=== PATIENT | female | born 1950 | race Caucasian/White ===

== ENCOUNTER 2017-08-13 06:03 | Inpatient (IN) | payer OTHER ==
[2017-07-28 14:19] VITALS: BMI 27.3
[~2017-08-13 06:03] MED LIST: CELECOXIB 200 MG CAPSULE PO ONE; oxyCODONE HCL 10 MG SUSTAINED ACTING TABLET PO ONE
[2017-08-13] MEDS ORDERED: oxyCODONE HCL 10 MG SUSTAINED ACTING TABLET ONE (06:43)
[2017-08-13] MEDS ORDERED: CELECOXIB 200 MG CAPSULE ONE (06:43)
[2017-08-13] MEDS ORDERED: VANCOMYCIN 1,250 MG in DEXTROSE 5%-WATER - 250 ML IVPB ONE (07:00)
[2017-08-13] MEDS ORDERED: CEFAZOLIN 2 GM/D5W 2 GM/50 ML ML IVPB ONE (07:00)
[2017-08-13] MEDS ORDERED: DEXAMETHASONE SOD PHOSPHATE/PF 10 MG/ML SDV ONE (07:45)
[2017-08-13] MEDS ORDERED: MIDAZOLAM HCL 2 MG/2 ML SINGLE DOSE VIAL ONE ×3 (07:45→09:32)
[2017-08-13] MEDS ORDERED: SODIUM CHLORIDE 0.9% P/F 10 ML VIAL IJ ONE (07:46)
[2017-08-13] MEDS ORDERED: BUPIVACAINE LIPOSOME/PF (EXPAREL) 266 MG/20 ML VIAL ONE (07:46)
[2017-08-13] MEDS ORDERED: BUPIVACAINE HCL/PF (5 MG/ML) 30 ML VIAL IJ ONE (07:46)
--- NOTE | 2017-08-13 07:47 | HP ---
History & Physical Update - History History: No Change - Physical Physical: No Change - Assessment Assessment: No Change - Plan Plan: No Change (no health history changes since pre-op clearance on 08/02/17)
[2017-08-13] MEDS ORDERED: BENZOIN/ALOE VERA/STORAX/TOLU 58 ML BOTTLE ONE (07:56)
[2017-08-13] MEDS ORDERED: PROPOFOL 20 ML ONE (08:19)
[2017-08-13] MEDS ORDERED: SUCCINYLCHOLINE CHLORIDE 200 MG/10 ML VIAL ONE (08:19)
[2017-08-13] MEDS ORDERED: ceFAZolin SODIUM 1 GM VIAL ONE (08:29)
[2017-08-13] MEDS ORDERED: VANCOMYCIN 1,000 MG VIAL (RESTRICTED TO ID ONLY) ONE (08:30)
[2017-08-13] MEDS ORDERED: TRANEXAMIC ACID 1000 MG/10 ML VIAL IVPUSH ONE (09:00)
[2017-08-13] MEDS ORDERED: VERAPAMIL HCL 5 MG/2 ML VIAL IVPUSH ONE (09:09)
--- NOTE | 2017-08-13 10:31 | OP ---
Operative Note - Note: Operative Date: 08/13/17 Pre-Operative Diagnosis: Right knee DJD Operation: Right total knee replacement Implants: Farhan Triathlon (cemented). Femur - 5. Tibia - 6. Poly - 11mm, TS. Patella - 27mm Post-Operative Diagnosis: Same as Pre-op Surgeon: Howie Dykes Sorority Mother: Angelito Dykes Anesthesiologist/DATABASE DEVELOPMENT PROJECT MANAGER: Leidy Varghese Anesthesia: Spinal Specimens Removed: Bone, soft tissue Estimated Blood Loss (mls): 0 Drains & Tubes with Location: 1 x deep hemovac Fluid Volume Replaced (mls): 1,000 (Crystalloid) Operative Report Dictated: Yes
--- NOTE | 2017-08-13 10:33 | PN ---
Progress Note (short form) - Note Progress Note: 66F s/p RIGHT total knee replacement POD #0. -Pain control. -DVT PPx: -Chemical: ASA 81mg PO BID x 6 weeks. -Mechanical: ZEKE's, SCD's. -Incentive spirometry. -PT/OT/Rehab, OOB. -WBAT RLE. -f/u drain output. -f/u AM labs. -Sandy-op antibiotics. -f/u post-op TOV. -Care per medical hospitalist team. -Discharge planning. -Will follow. Howie Dykes MD (Orthopaedic Surgery).
[2017-08-13] MEDS ORDERED: MAGNESIUM HYDROX 2400MG/30ML ORAL SUSPENSION 30 ML CUP PO PRN (10:35)
[2017-08-13] MEDS ORDERED: MAG HYDROX/AL HYDROX/SIMETH 30 ML UNIT-DOSE CUP PO PRN (10:35)
[2017-08-13] MEDS ORDERED: LACTATED RINGERS SOLUTION 1,000 ML IV SCH (10:45)
--- NOTE | 2017-08-13 11:14 | SURG ---
Surgery Clinical Administrative Coordinator Note Clinical Administrative Coordinator: Madelyn Morales PA-C Date of Service: 08/13/17 (]) Diagnosis: Right knee osteoarthritis Procedure: right total knee arthroplasty I was present for the entirety of the operative procedure. For further detail, please refer to operative report. Visit type - Case Type Case Type: Scheduled - Emergency Emergency Visit: No - New patient This patient is new to me today: Yes Date on this admission: 08/13/17
--- NOTE | 2017-08-13 11:31 | OP ---
DATE OF OPERATION: 08/13/2017 SURGEON: Howie Dykes MD ASSISTANTS: Angelito Dykes MD, and KUMAR Ann PREOPERATIVE DIAGNOSIS: Fixed flexed tricompartmental osteoarthritis, right knee. POSTOPERATIVE DIAGNOSIS: Fixed flexed tricompartmental osteoarthritis, right knee. OPERATION PERFORMED: Right cemented posterior stabilized total knee arthroplasty ([place]nard). ANESTHESIA: Conscious sedation with spinal anesthesia and peripheral nerve block. OPERATION IN DETAIL: The patient was correctly identified and brought in the operating room. The right lower extremity was prepped and free draped in the routine manner with Betadine scrub solution, wiped with alcohol, and DuraPrep was applied. A time-out was called. Imaging was available for intraoperative evaluation. On the table, evaluation revealed a fixed valgus deformity of approximately 15 to 20 degrees, fixed flexed deformity of about 10 degrees. In the supine position, the older regional incision was entered. This was the original incision for the meniscal transplant and cartilage transplant performed in [facility] many years ago. This was extended proximally and distally. The quadriceps tendon was incised longitudinally, and a medial parapatellar incision utilized around the medial aspect of the patella to the tibial tubercle. Patella was capsized laterally. Severe tricompartmental osteoarthritis of the knee noted. The patella was cut free-handed. After freeing soft tissues appropriately, a size 27-mm jig applied and lug holes inserted. The tibia was subluxed forwards. The tibial cut was made extramedullary with neutral alignment achieved. This, to receive a size 6 universal baseplate tibia, and the tibial surface prepared at that point. The femoral insertional starter hole was inserted into the bone bed just above the insertion of the posterior cruciate ligament. Onto this, the femoral cuts were made. This was an approximation of the joint line by +2 mm. The knee was cut in external rotation of 3 degrees and valgus of 4 degrees. The femur for a Triathlon Knee measured size 5, and the flexion gaps and extension gaps were even at 11 mm. Once all bony cuts were made, the bone bed was prepared thoroughly with pulse lavage. Cementing was in one stage, patella, tibia, and femur, to receive the exact mentioned implants, which had been trialed previously revealing excellent realignment of the knee back into its anatomical position and mechanical axis being reconstituted. Once the cementing was completed, all extraneous cement was removed, and a size 11 TS polyethylene liner to the tibia inserted. This gave full extension on the table, easy flexion to at least 120 to 130 degrees, and patellar tracking was uncomplicated. The wounds were thoroughly lavaged. The wounds were closed with quadriceps tendon parapatellar tissues and fascia 1 Vicryl, subcutaneous 1 and 2-0 Vicryl, skin 3-0 Monocryl with Steri- Strips. Drainage 1/8-inch Hemovac x1. Overall, operation went extremely well. Tourniquet time was well below 70 minutes. MD RADHA Comer/[id number] MTDD
[2017-08-13] MEDS ORDERED: oxyCODONE HCL 5 MG TABLET PO PRN (12:06)
[2017-08-13] MEDS: ACETAMINOPHEN 325 MG TABLET (FP) PO SCH ×2 (12:14→18:08)
[2017-08-13] MEDS: ONDANSETRON 4 MG/2 ML VIAL IVPUSH PRN (12:45)
--- NOTE | 2017-08-13 14:03 | CONSULT ---
Consultation: REQUESTING PROVIDER: Dr Dykes CONSULT REQUEST: We have been asked to medically evaluate this patient for medical management HISTORY OF PRESENT ILLNESS: Patient is a 66 y/o female with a past medical history of htn, hypothyroidism, and DJD. Patient was admitted to the medical surgical unit after an elective right total knee replacement, 08/13/17, Dr Dykes. REVIEW OF SYSTEMS: CONSTITUTIONAL: Absent: fever, chills, diaphoresis, generalized weakness, malaise, loss of appetite, weight change HEENT: Absent: rhinorrhea, nasal congestion, throat pain, throat swelling, difficulty swallowing, mouth swelling, ear pain, eye pain, visual changes CARDIOVASCULAR: Absent: chest pain, syncope, palpitations, irregular heart rate, lightheadedness , peripheral edema RESPIRATORY: Absent: cough, shortness of breath, dyspnea with exertion, orthopnea, wheezing, stridor, hemoptysis GASTROINTESTINAL: Absent: abdominal pain, abdominal distension, nausea, vomiting, diarrhea, constipation, melena, hematochezia GENITOURINARY: Absent: dysuria, frequency, urgency, hesitancy, hematuria, flank pain, genital pain MUSCULOSKELETAL: Absent: myalgia, arthralgia, joint swelling, back pain, neck pain SKIN: Absent: rash, itching, pallor HEMATOLOGIC/IMMUNOLOGIC: Absent: easy bleeding, easy bruising, lymphadenopathy, frequent infections ENDOCRINE: Absent: unexplained weight gain, unexplained weight loss, heat intolerance, cold intolerance NEUROLOGIC: Absent: headache, focal weakness or paresthesias, dizziness, unsteady gait, seizure, mental status changes, bladder or bowel incontinence PSYCHIATRIC: Absent: anxiety, depression, suicidal or homicidal ideation, hallucinations. PHYSICAL EXAMINATION Vital Signs - 24 hr 08/13/17 08/13/17 08/13/17 06:56 11:10 11:15 Temperature 97.9 F 96.1 F L Pulse Rate 45 L 49 L 44 L Respiratory 18 14 10 L Rate Blood Pressure 127/72 116/71 120/70 O2 Sat by Pulse 99 98 Oximetry (%) 08/13/17 08/13/17 08/13/17 11:20 11:25 11:40 Temperature Pulse Rate 44 L 51 L 43 L Respiratory 10 L 21 21 Rate Blood Pressure 113/68 107/74 101/69 O2 Sat by Pulse 98 100 100 Oximetry (%) 08/13/17 08/13/17 08/13/17 11:55 12:10 12:25 Temperature Pulse Rate 48 L 44 L 42 L Respiratory 18 12 12 Rate Blood Pressure 113/73 107/73 105/67 O2 Sat by Pulse 100 100 100 Oximetry (%) 08/13/17 08/13/17 12:40 13:00 Temperature 96.3 F L 95.8 F L Pulse Rate 45 L 46 L Respiratory 12 12 Rate Blood Pressure 108/71 107/76 O2 Sat by Pulse 100 100 Oximetry (%) GENERAL: Awake, alert, and fully oriented, in no acute distress. HEAD: Normal with no signs of trauma. EYES: Pupils equal, round and reactive to light, extraocular movements intact, sclera anicteric, conjunctiva clear. No lid lag. EARS, NOSE, THROAT: Ears normal, nares patent, oropharynx clear without exudates. Moist mucous membranes. NECK: Normal range of motion, supple without lymphadenopathy, JVD, or masses. LUNGS: Breath sounds equal, clear to auscultation bilaterally. No wheezes, and no crackles. No accessory muscle use. HEART: Regular rate and rhythm, normal S1 and S2 without murmur, rub or gallop. ABDOMEN: Soft, nontender, not distended, normoactive bowel sounds, no guarding, no rebound, no masses. No hepatomegaly or splenomegaly. MUSCULOSKELETAL: Normal range of motion at all joints. No bony deformities or tenderness. No CVA tenderness. UPPER EXTREMITIES: 2+ pulses, warm, well-perfused. No cyanosis. No clubbing. Cap refill <2 seconds. No peripheral edema. LOWER EXTREMITIES: 2+ pulses, warm, well-perfused. No calf tenderness. No peripheral edema. RIGHT LOWER EXTREMITY: hemovac drain: serrous drainage, dressing CDI, less than 3 second capillary refill, +3 pedal pulse, patient is able to move the digits of the foot w/o any difficulty. NEUROLOGICAL: Cranial nerves II-XII intact. Normal speech. Normal gait. PSYCHIATRIC: Cooperative. Good eye contact. Appropriate mood and affect. SKIN: Warm, dry, normal turgor, no rashes or lesions noted. Active Medications Generic Name Dose Route Start Last Admin Trade Name Freq PRN Reason Stop Dose Admin Acetaminophen 650 mg 08/13/17 12:15 08/13/17 12:14 Tylenol - PO 08/16/17 12:14 650 mg Q6H ANAY Administration Al Hydroxide/Mg Hydroxide 30 ml 08/13/17 10:35 Mylanta Oral Suspension - PO Q4H PRN DYSPEPSIA Amlodipine Besylate 5 mg 08/14/17 10:00 Norvasc - PO DAILY [facility] Aspirin 81 mg 08/13/17 22:00 Asa - PO BID [facility] Fentanyl 25 mcg 08/13/17 12:06 Sublimaze Injection - IVPUSH [id number] PRN PAIN-PACU ORDER X 4 DOSES ONLY Hydrochlorothiazide 12.5 mg 08/14/17 10:00 Hctz - PO DAILY [facility] Cefazolin Sodium/Dextrose 2 gm in 50 mls @ 100 mls/hr 08/13/17 18:00 Ancef 2 Gm Premixed Ivpb - IVPB 08/14/17 02:29 Q8H-IV [facility] Lactated Ringer's 1,000 mls @ 100 mls/hr 08/13/17 10:45 Lactated Ringers Solution IV 08/14/17 06:00 ASDIR [facility] Levothyroxine Sodium 88 mcg 08/14/17 07:00 Synthroid - PO DAILY@0700 [facility] Magnesium Hydroxide 30 ml 08/13/17 10:35 Milk Of Magnesia - PO PRN PRN CONSTIPATION Ondansetron HCl 4 mg 08/13/17 10:35 08/13/17 12:45 Zofran Injection IVPUSH 4 mg Q6H PRN Administration NAUSEA Oxycodone HCl 5 mg 08/13/17 12:06 Roxicodone - PO Q3H PRN PAIN LEVEL 1-5 Oxycodone HCl 10 mg 08/13/17 12:06 Roxicodone - PO Q3H PRN PAIN LEVEL 6-10 Oxycodone HCl 10 mg 08/13/17 22:00 Oxycontin - PO 08/16/17 12:07 BID [facility] Pantoprazole Sodium 40 mg 08/14/17 10:00 Protonix - PO DAILY [facility] Senna/Docusate Sodium 2 tablet 08/13/17 22:00 Pericolace - PO BID [facility] ASSESSMENT/PLAN: 1) MS s/p right total knee replacement, POD #0 - prn pain medication - physical therapy as per the orthopedist - monitor hgb 2) cardiovascular hypertension - continue amlodipne and hctz 3)endo hypothyroidism - continue home dose levothyroxine Dispo: We will continue to follow the patient. Thank you for this consultative opportunity. Visit type - Emergency Visit Emergency Visit: No - New Patient This patient is new to me today: Yes Date on this admission: 08/13/17 - Critical Care Critical Care patient: No
[2017-08-13] MEDS ORDERED: SODIUM CHLORIDE 0.9% 500 ML INFUS.BAG IV ONE (15:29)
[2017-08-13] MEDS ORDERED: ePHEDrine SULFATE 50 MG/1 ML AMPULE IVPUSH ONE (16:00)
[2017-08-13] MEDS: oxyCODONE HCL 5 MG TABLET PO PRN ×3 (16:07→21:37)
[2017-08-13] MEDS: CEFAZOLIN 2 GM/D5W 2 GM/50 ML ML IVPB SCH (18:07)
[2017-08-13] MEDS: SENNOSIDES/DOCUSATE COMBO (SENNA PLUS) TABLET (UD) PO SCH (21:35)
[2017-08-13] MEDS: ASPIRIN 81 MG CHEWABLE TABLETS PO SCH (21:35)
[2017-08-13] MEDS ORDERED: oxyCODONE HCL 10 MG SUSTAINED ACTING TABLET PO SCH (22:00)
[2017-08-14] MEDS: ACETAMINOPHEN 325 MG TABLET (FP) PO SCH ×3 (00:48→18:50)
[2017-08-14] MEDS: oxyCODONE HCL 5 MG TABLET PO PRN ×3 (00:48→21:46)
[2017-08-14] MEDS: CEFAZOLIN 2 GM/D5W 2 GM/50 ML ML IVPB SCH (01:16)
[2017-08-14] MEDS: ONDANSETRON 4 MG/2 ML VIAL IVPUSH PRN (07:05)
[2017-08-14] MEDS: LEVOTHYROXINE NA 88 MCG TABLET (FP) PO SCH (07:06)
[2017-08-14 09:20] LABS: HEMATOCRIT 27.3 % (32.4-45.2); HEMOGLOBIN 9.3 GM/dl (10.7-15.3); MCH 31.1 pg (25.7-33.7); MEAN CELL VOLUME 91.6 fl (80-96); MEAN PLT VOLUME 8.9 fl (7.5-11.1); PLATELET COUNT 187 K/MM3 (134-434); RBC 2.98 M/mm3 (3.60-5.2); RDW 13.3 % (11.6-15.6); WHITE BLOOD COUNT 8.1 K/mm3 (4.0-10.8)
[2017-08-14 09:25] LABS: ANION GAP 5 (8-16); BLOOD UREA NITROGEN 17 mg/dl (7-18); CALCIUM 7.8 mg/dl (8.4-10.2); CHLORIDE 100 mmol/L (98-107); CO2 27 mmol/L (22-28); CREATININE 0.8 mg/dl (0.6-1.3); GLUCOSE,RANDOM 143 mg/dl (74-106); POTASSIUM 3.1 mmol/L (3.5-5.1); SODIUM 132 mmol/L (136-145)
[2017-08-14] MEDS ORDERED: KETOROLAC TROMETHAMINE 30 MG/1 ML VIAL IVPUSH ONE (09:31)
[2017-08-14] MEDS: ASPIRIN 81 MG CHEWABLE TABLETS PO SCH ×2 (10:00→21:46)
[2017-08-14] MEDS: HYDROCHLOROTHIAZIDE 12.5 MG CAPSULE (FP) PO SCH (10:00)
[2017-08-14] MEDS ORDERED: PROMETHAZINE HCL 25 MG/1 ML VIAL IVPB ONE (10:00)
[2017-08-14] MEDS ORDERED: POTASSIUM CHLORIDE TABS 20 MEQ TABLET.ER (FP) PO ONE (10:00)
[2017-08-14] MEDS: SENNOSIDES/DOCUSATE COMBO (SENNA PLUS) TABLET (UD) PO SCH ×2 (10:10→21:46)
[2017-08-14] MEDS: PANTOPRAZOLE 40 MG TABLET (FP) PO SCH (10:15)
[2017-08-14] MEDS: amLODIPine BESYLATE 5 MG TABLET (FP) PO SCH (10:24)
--- NOTE | 2017-08-14 10:35 | PN ---
Progress Note (short form) - Note Progress Note: Anesthesia postop note POD#1. S/P Right total knee replacement, under spinal and nerve block. Pat seen and examined. Pat c/o pain since last night, been unable to sleep.Also c/o tightness in her right thigh and below the knee. N/V last night and this morning. VSS. Sitting in chair, c/o pain and nausea. Will D/C oxycontin. Add toradol and Tylenol. Continue with Oxycodon. Will follow up.
--- NOTE | 2017-08-14 11:10 | PN ---
Physical Exam: SUBJECTIVE: Patient seen and examined, patient is sitting in her bedside recliner, reports ongoing nausea OBJECTIVE: Patient is a 66 y/o female with a past medical history of htn, hypothyroidism, and DJD. Patient was admitted to the medical surgical unit after an elective right total knee replacement, 08/13/17, Dr Dykes. Vital Signs Period Temp Pulse Resp BP Sys/Shepherd Pulse Ox Last 24 Hr 95.8 F-98.4 F 42-68 10-21 101-137/67-76 98-100 GENERAL: The patient is awake, alert, and fully oriented, in no acute distress. HEAD: Normal with no signs of trauma. EYES: PERRL, extraocular movements intact, sclera anicteric, conjunctiva clear. No ptosis. ENT: Ears normal, nares patent, oropharynx clear without exudates, moist mucous membranes. NECK: Trachea midline, full range of motion, supple. LUNGS: Breath sounds equal, clear to auscultation bilaterally, no wheezes, no crackles, no accessory muscle use. HEART: Regular rate and rhythm, S1, S2 without murmur, rub or gallop. ABDOMEN: Soft, nontender, nondistended, normoactive bowel sounds, no guarding, no rebound, no hepatosplenomegaly, no masses. EXTREMITIES: 2+ pulses, warm, well-perfused, no edema. RIGHT LOWER EXTREMITY: dressing CDI, less than 3 second capillary refill, + 3 pedal pulse, hemovac drain sangenous drainage NEUROLOGICAL: Cranial nerves II through XII grossly intact. Normal speech, gait not observed. PSYCH: Normal mood, normal affect. SKIN: Warm, dry, normal turgor, no rashes or lesions noted Laboratory Results - last 24 hr 08/14/17 08/14/17 08:30 08:30 WBC 8.1 RBC 2.98 L Hgb 9.3 L Hct 27.3 L MCV 91.6 MCH 31.1 MCHC 34.0 RDW 13.3 Plt Count 187 MPV 8.9 Sodium 132 L Potassium 3.1 L Chloride 100 Carbon Dioxide 27 Anion Gap 5 L BUN 17 Creatinine 0.8 Random Glucose 143 H Calcium 7.8 L Active Medications Generic Name Dose Route Start Last Admin Trade Name Freq PRN Reason Stop Dose Admin Acetaminophen 650 mg 08/13/17 12:15 05/10/18 07:06 Tylenol - PO 08/16/17 12:14 650 mg Q6H ANAY Administration Al Hydroxide/Mg Hydroxide 30 ml 08/13/17 10:35 Mylanta Oral Suspension - PO Q4H PRN DYSPEPSIA Amlodipine Besylate 5 mg 08/14/17 10:00 08/14/17 10:24 Norvasc - PO 5 mg DAILY ANAY Administration Aspirin 81 mg 08/13/17 22:00 08/14/17 10:00 Asa - PO 81 mg BID ANAY Administration Fentanyl 25 mcg 08/13/17 12:06 Sublimaze Injection - IVPUSH [id number] PRN PAIN-PACU ORDER X 4 DOSES ONLY Hydrochlorothiazide 12.5 mg 08/14/17 10:00 08/14/17 10:00 Hctz - PO 12.5 mg DAILY ANAY Administration Levothyroxine Sodium 88 mcg 08/14/17 07:00 08/14/17 07:06 Synthroid - PO 88 mcg DAILY@0700 ANAY Administration Magnesium Hydroxide 30 ml 08/13/17 10:35 Milk Of Magnesia - PO PRN PRN CONSTIPATION Ondansetron HCl 4 mg 08/13/17 10:35 08/14/17 07:05 Zofran Injection IVPUSH 4 mg Q6H PRN Administration NAUSEA Oxycodone HCl 5 mg 08/13/17 12:06 Roxicodone - PO Q3H PRN PAIN LEVEL 1-5 Oxycodone HCl 10 mg 08/13/17 12:06 08/14/17 07:05 Roxicodone - PO 10 mg Q3H PRN Administration PAIN LEVEL 6-10 Oxycodone HCl 10 mg 08/13/17 22:00 08/13/17 21:36 Oxycontin - PO 08/16/17 12:07 10 mg BID ANAY Administration Pantoprazole Sodium 40 mg 08/14/17 10:00 08/14/17 10:15 Protonix - PO 40 mg DAILY ANAY Administration Senna/Docusate Sodium 2 tablet 08/13/17 22:00 08/14/17 10:10 Pericolace - PO 2 tablet BID ANAY Administration ASSESSMENT/PLAN: 1) MS s/p right total knee replacement, POD #1 - prn pain medication - physical therapy as per the orthopedist - monitor hgb 9.3 stable close monitoring 2) cardiovascular hypertension - continue amlodipne and hctz 3)endo hypothyroidism - continue home dose levothyroxine f/e/n low sodium diet hypokalemia - replete potassium, 40meq kci po x 1, pending magnesium Dispo: We will continue to follow the patient. Thank you for this consultative opportunity Visit type - Emergency Visit Emergency Visit: No - New Patient This patient is new to me today: No - Critical Care Critical Care patient: No - Discharge Referral Referred to [facility] No
[2017-08-14 11:35] LABS: MAGNESIUM 1.7 mg/dL (1.8-2.4); PHOSPHOROUS 3.5 mg/dl (2.5-4.6)
[2017-08-14] MEDS ORDERED: MAGNESIUM SULFATE 2 GM in SODIUM CHLORIDE 100 ML IVPB ONE (12:08)
[2017-08-14] MEDS ORDERED: MAGNESIUM SULFATE IN WATER 2 GM/50 ML IVPB IVPB ONE (12:30)
--- NOTE | 2017-08-14 13:52 | PN ---
Progress Note (short form) - Note Progress Note: surgery POD #1 right total knee arthroplasty. Patient seen and examined at the bedside. Her daughter was present for the entire exam. She complains of pain over the right knee and at the right thigh and throbbing throughout the right leg. She had one episode of vomiting last night when she sat up in bed and has been nauseous overnight and throughout the morning. She denies any CP, SOB, fever or chills. Vital Signs Temp 98.0 F 08/14/17 10:00 Pulse 60 08/14/17 10:00 Resp 18 08/14/17 10:00 BP 124/73 08/14/17 10:00 Pulse Ox 100 08/14/17 10:00 Intake & Output 08/13/17 08/14/17 08/14/17 23:59 11:59 23:59 Intake Total 1000 950 Output Total 1395 100 Balance -395 850 Intake: IV 300 600 Lactated Ringers Solution 600 1,000 ml @ 100 mls/hr IV ASDIR ANAY Rx#: [id number] IVPB 100 Oral 700 250 Output: Drainage 295 100 Right Knee 250 100 Urine 1100 Void 1100 Other: Voiding Method Bedpan Bedside Commode CBC, BMP 08/14/17 08:30 08/14/17 08:30 PE: A&Ox3, NAD unlabored resp on RA Right LE dressings c/d/i with no evidence of d/c, Drain in good position and draining. Thigh with some diffuse edema but soft, skin intact with no bruising or erythema. b/l LE compartments soft and non-tender, 5/5 on dorsi/plantar flexion with +2 pedal pulses. NVID Problem List - Problems (1) Osteoarthritis Assessment/Plan: POD #1 Right TKA with some nausea and vomiting. Thigh pain likely secondary to tourniquet use during procedure. Plan: 1) D/c Oxycontin and use oxycodone Q4 hours, tylenol and one dose or tramadol for pain 2) Reglan for vomiting 3) OOB with assist WBAT 4) Ice to right knee 5) Encourage IS 6) D/c planning for rehab when appropriate evaluation and plan discussed with Dr Dykes Code(s): M19.90 - UNSPECIFIED OSTEOARTHRITIS, UNSPECIFIED SITE
[2017-08-14 18:24] LABS: ANION GAP 6 (8-16); BLOOD UREA NITROGEN 19 mg/dl (7-18); CALCIUM 8.1 mg/dl (8.4-10.2); CHLORIDE 100 mmol/L (98-107); CO2 26 mmol/L (22-28); GLUCOSE,RANDOM 141 mg/dl (74-106); POTASSIUM 3.4 mmol/L (3.5-5.1); SODIUM 132 mmol/L (136-145)
[2017-08-14 22:14] VITALS: TEMP 98.7
[2017-08-15] MEDS: ACETAMINOPHEN 325 MG TABLET (FP) PO SCH ×3 (00:27→09:58)
[2017-08-15] MEDS: LEVOTHYROXINE NA 88 MCG TABLET (FP) PO SCH (06:16)
[2017-08-15 06:57] VITALS: BP 103/54; PULSE 60
[2017-08-15 08:09] LABS: HEMOGLOBIN 8.1 GM/dl (10.7-15.3); MCH 31.1 pg (25.7-33.7); MCHC 33.7 g/dl (32.0-36.0); MEAN CELL VOLUME 92.3 fl (80-96); MEAN PLT VOLUME 8.5 fl (7.5-11.1); PLATELET COUNT 160 K/MM3 (134-434)
[2017-08-15 08:45] LABS: ANION GAP 4 (8-16); BLOOD UREA NITROGEN 21 mg/dl (7-18); CALCIUM 7.9 mg/dl (8.4-10.2); CHLORIDE 102 mmol/L (98-107); CO2 27 mmol/L (22-28); CREATININE 0.9 mg/dl (0.6-1.3); GLUCOSE,RANDOM 104 mg/dl (74-106); MAGNESIUM 2.2 mg/dL (1.8-2.4); POTASSIUM 3.7 mmol/L (3.5-5.1); SODIUM 133 mmol/L (136-145)
--- NOTE | 2017-08-15 09:04 | DS ---
Physical Exam: SUBJECTIVE: Patient seen and examined, ambulatory with physical therapy, denies any paresthesia to the right lower extremity, tolerating meals, requesting discharge home. OBJECTIVE: Patient is a 66 y/o female with a past medical history of htn, hypothyroidism, and DJD. Patient was admitted to the medical surgical unit after an elective right total knee replacement, 08/13/17, Dr Dykes. Vital Signs Period Temp Pulse Resp BP Sys/Shepherd Pulse Ox Last 24 Hr 98.0 F-98.7 F 60-65 18-19 95-124/42-73 94-100 PHYSICAL EXAM GENERAL: The patient is awake, alert, and fully oriented, in no acute distress. HEAD: Normal with no signs of trauma. EYES: PERRL, extraocular movements intact, sclera anicteric, conjunctiva clear. ENT: Ears normal, nares patent, oropharynx clear without exudates, moist mucous membranes. NECK: Trachea midline, full range of motion, supple. LUNGS: Breath sounds equal, clear to auscultation bilaterally, no wheezes, no crackles, no accessory muscle use. HEART: Regular rate and rhythm, S1, S2 without murmur, rub or gallop. ABDOMEN: Soft, nontender, nondistended, normoactive bowel sounds, no guarding, no rebound, no hepatosplenomegaly, no masses. EXTREMITIES: 2+ pulses, warm, well-perfused, no edema. RIGHT LOWER EXTREMITY: hemovac dressing removed and intact, dressing CDI, less than 3 second cappillary refill, +3 pedal pulse NEUROLOGICAL: Cranial nerves II through XII grossly intact. Normal speech, gait not observed. PSYCH: Normal mood, normal affect. SKIN: Warm, dry, normal turgor, no rashes or lesions noted. LABS Laboratory Results - last 24 hr 08/14/17 08/14/17 08/14/17 07:30 08:30 08:30 WBC 8.1 RBC 2.98 L Hgb 9.3 L Hct 27.3 L MCV 91.6 MCH 31.1 MCHC 34.0 RDW 13.3 Plt Count 187 MPV 8.9 Sodium 132 L Potassium 3.1 L Chloride 100 Carbon Dioxide 27 Anion Gap 5 L BUN 17 Creatinine 0.8 Random Glucose 143 H Calcium 7.8 L Phosphorus 3.5 Magnesium 1.7 L 05/01/2208/15/17 08/15/17 17:55 07:50 07:50 WBC 7.0 RBC 2.60 L Hgb 8.1 L D Hct 24.0 L MCV 92.3 MCH 31.1 MCHC 33.7 RDW 14.0 Plt Count 160 MPV 8.5 Sodium 132 L 133 L Potassium 3.4 L 3.7 Chloride 100 102 Carbon Dioxide 26 27 Anion Gap 6 L 4 L BUN 19 H 21 H Creatinine 1.0 D 0.9 Random Glucose 141 H 104 D Calcium 8.1 L 7.9 L Phosphorus Magnesium 2.2 HOSPITAL COURSE: The patient was admitted to the [facility] after an right total knee replacement. On post operative day 1, the patient ambulated the hallways with assistance. Narcotic and non-narcotic pain management control was achieved with an oral and IV approach. POD #2, the surgical drain was removed fully intact and without incident. Sandy-operative IV ABX were administered. DVT prophylaxis was achieved with SCDs and early ambulation. The patient ambulated with Physical Therapy and patient will receive home physical therapy upon discharge. Narcotic scripts were checked with [facility] prior to escibe. The discharge instructions and an oral pain management plan were reviewed with the patient. All questions answered. Above plan discussed with Dr. Dykes and agreed. PLAN - discharge home to with [facility] Date of Admission:08/13/17 Date of Discharge: 08/15/17 Minutes to complete discharge: 45 Discharge Summary Reason For Visit: BILATERAL OSTEOARTHRITIS OF KNEES Current Active Problems Osteoarthritis (Acute) Condition: Improved - Instructions Diet, Activity, Other Instructions: Post-op Instructions- Call the office for a follow-up appointment in 1 week Aspirin 81mg twice a day for 6 weeks. Pain medication was sent into your pharmacy. Apply Graduated Compression Stockings (TEDs) to both lower extremities- remove daily for hygiene ONLY Apply cold packs to affected area for 15 minutes every 2 hours. Physical Therapist will come to your home for the first 5 days. You will be set up with outpatient PT at your first post-operative visit. You may ambulate as tolerated-encourage self care (at least every 2-3 hours while awake) with walker or cane Maintain dressing to operative wound (will be removed by surgeon at first office visit) Shower with dressing in place-if dressing integrity compromised, remove and apply dry sterile dressing and notify Orthopedist. DO NOT SHOWER unless Orthopedists approves without dressing CONTACT THE OFFICE FOR ANY CHANGE IN YOUR CONDITION (for example-fever greater than 102 degrees,excessive bleeding from operative site, purulent drainage, severe swelling or pain) GO TO THE EMERGENCY ROOM IF THERE IS A MEDICAL EMERGENCY * If you have any questions, please do not hesitate to call the office Referrals: Angelito Dykes MD [Staff Physician] - 08/21/17 Disposition: [facility]/HOME HEALTH CARE - Home Medications Comprehensive Discharge Medication List: Ambulatory Orders Amlodipine Besylate [Norvasc -] 5 mg PO DAILY 07/28/17 Cholecalciferol (Vitamin D3) [Vitamin D3] 5,000 unit PO DAILY 07/28/17 Hydrochlorothiazide [Hctz -] 12.5 mg PO DAILY 07/28/17 Levothyroxine [Synthroid -] 88 mcg PO DAILY 07/28/17 Nebivolol HCl [Bystolic] 5 mg PO DAILY 07/28/17 Pitavastatin Calcium [Livalo] 2 mg PO HS 07/28/17 Ubidecarenone [Coq10] 50 mg PO DAILY 07/28/17 This patient is new to me today: No Emergency Visit: No Critical Care patient: No - Discharge Referral Referred to [facility] No
[2017-08-15] MEDS: ASPIRIN 81 MG CHEWABLE TABLETS PO SCH (09:56)
[2017-08-15] MEDS: amLODIPine BESYLATE 5 MG TABLET (FP) PO SCH (09:57)
[2017-08-15] MEDS: SENNOSIDES/DOCUSATE COMBO (SENNA PLUS) TABLET (UD) PO SCH (09:57)
[2017-08-15] MEDS: PANTOPRAZOLE 40 MG TABLET (FP) PO SCH (09:58)
[2017-08-15] MEDS ORDERED: FERROUS SO4 325 MG TABLET (FP) PO SCH (10:00)
[2017-08-15] MEDS: HYDROCHLOROTHIAZIDE 12.5 MG CAPSULE (FP) PO SCH (10:23)
--- NOTE | 2017-08-15 16:43 | PATH ---
Surgical Pathology Report Patient Name: SPOHY SORIANO Med. Rec. #: [id number] /Age/Gender: 1950 (Age: 66) / F Account: [id number] Location: [facility] MED-SURG Taken: 08/13/2017 Received: 08/13/2017 Reported: 08/15/2017 Physicians: Howie Dykes M.D. Specimen(s) Received BONE RIGHT KNEE Clinical History Osteoarthritis right knee Final Diagnosis BONE, KNEE, RIGHT, TOTAL KNEE REPLACEMENT MAKOPLASTY: BONE WITH DEGENERATIVE JOINT DISEASE, DENSE FIBROCONNECTIVE TISSUE, FIBROADIPOSE TISSUE, AND REACTIVE SYNOVIUM. Electronically Signed Brittany Nagel M.D. Gross Description Received in formalin labeled "bone right knee," is a 13.0 x 9.0 x 2.0 cm aggregate of multiple portions of bone and soft tissue. The tibial plateau measures 8.5 x 6.0 x 2.0 cm. There is a 3.6 cm in greatest dimension area of eburnation present. The remaining articular surfaces are pelayo-yellow and focally granular. The underlying trabecular bone is yellow and hard. Aligner Typewriter sections are submitted in one cassette, following decalcification. /08/14/201708/14/2017
== END 2017-08-15 12:24 | disposition home health service (06) | DRG 302 ==
LOC: FM/S 06:03
PROVIDERS: ADMIT Orthopaedic Surgery Orthopaedic Surgery of the Spine; ATTEND Orthopaedic Surgery Orthopaedic Surgery of the Spine
PROC: 0SRC0J9 Replacement of Right Knee Joint with Synthetic Substitute, Cemented, Open Approach (ICD-10-PCS; principal; 2017-08-13 09:10)
DX: M17.11 Unilateral primary osteoarthritis, right knee (principal); I10 Essential (primary) hypertension; E03.9 Hypothyroidism, unspecified; R11.2 Nausea with vomiting, unspecified; E87.6 Hypokalemia
CPT/HCPCS: 36415; 73560-TC-RT-FY; 80048; 83735; 84100; 85027; 88304-TC; 88311-TC; 94010; 94760; 97116-GP; 97162-GP